=== PATIENT | male | born 1995 | race Caucasian/White ===

== ENCOUNTER → 2022-01-21 | Outpatient (CLI) | payer OTHER | LOC: LAB 10:13 | DX: U07.1 COVID-19 (principal) ==

== ENCOUNTER → 2024-03-21 | Outpatient (CLI) | payer OTHER | LOC: RAD 09:21 | DX: R10.11 Right upper quadrant pain (principal); R10.13 Epigastric pain ==

== ENCOUNTER → 2024-08-14 | Outpatient (CLI) | payer OTHER | LOC: RAD 17:34 | DX: M25.561 Pain in right knee (principal) ==

== ENCOUNTER → 2024-08-22 | Outpatient (CLI) | payer OTHER | LOC: RAD 08:02 | DX: M25.461 Effusion, right knee (principal) ==